=== PATIENT | female | born 1935 | race Caucasian/White ===

== ENCOUNTER 2017-01-17 15:45 | Emergency (ER) | payer OTHER ==
--- NOTE | 2017-01-17 16:54 | EDPHY ---
H & P Time Seen by Provider: 01/17/17 16:18 HPI/ROS: CHIEF COMPLAINT: Head injury HISTORY OF PRESENT ILLNESS: Patient is a 81-year-old female who presents emergency department after striking her head during the fall. The patient was on the phone. She has had a sit in a rocking chair and misjudged it. She struck her head on a file cabinet fell to the floor. She lost "teaspoons of blood." She does not think she lost consciousness but is unsure. She complains only of a mild headache. She has no neck pain. No weakness or numbness. No nausea or vomiting. She states the bleeding is now controlled. REVIEW OF SYSTEMS: My complete review of systems is negative except as mentioned in the HPI. Past Medical/Surgical History: Includes hypothyroidism, DVT, ectopic with surgery Social history: The patient is Smoking Status: Never smoked Physical Exam: Vitals noted GENERAL: Well-appearing, in no acute distress, alert. HEAD: patient has a large hematoma in the right posterior aspect of her head. Her hair is matted and clotted. This was cleaned. EYES: PERRLA, EOMI, normal to inspection. ENT: Airway intact, no dental or oral injury, no malocclusion, no hemotympanum , normal external examination. NECK: The trachea is midline. There is no crepitus. The C-spine is nontender. RESPIRATORY: Clear to auscultation bilaterally, no rales, rhonchi or wheezing. There is no crepitus or palpable rib fractures. CVS: Regular rate and rhythm, no rubs, murmurs, or gallops. ABDOMEN: Soft, nontender, nondistended, normal bowel sounds, no bruising or abrasions. Pelvis: Stable. No tenderness palpation. Hips full range of motion. BACK: Normal to inspection, no spinal tenderness, no spinal step off, no notable bruising or abrasions. SKIN: Normal color, warm, dry. No pallor or diaphoresis. EXTREMITIES: Atraumatic, neurovascularly intact distally in all extremities, pelvis is stable , hips with full range of motion, moves all extremities freely. NEURO/PSYCH: Alert and oriented x 3, GCS 15, normal mood and affect, normal motor sensory exam. Constitutional: Initial Vital Signs Temperature (C) 36.8 C 01/17/17 15:50 Heart Rate 14 L 01/17/17 15:50 Respiratory Rate 72 H 01/17/17 15:50 Blood Pressure 172/67 H 01/17/17 15:50 O2 Sat (%) 96 01/17/17 15:50 O2 Delivery Mode Room Air Allergies/Adverse Reactions: No Known Allergies Allergy (Unverified 01/17/17 15:48) Home Medications: Medication Instructions Recorded Aspirin [Aspirin 81mg] 81 mg PO DAILY 03/04/11 Levothyroxine [Levothroid] 0 mcg PO DAILY@1000 03/04/11 Medical Decision Making - Diagnostics Imaging Results: Imaging Impressions Cervical Spine CT 01/17/17 16:50 Impression: Severe multilevel degenerative change with spondylolistheses as above, with no acute posttraumatic findings. If symptoms persist and clinical suspicion warrants, consider MRI. Findings discussed with Dr. Estelle Gutierrez on January 17, [address] 01/17/17 16:50 Impression: 1. No acute intracranial findings. 2. Diffuse cerebral atrophy with periventricular and subcortical low attenuation consistent with chronic microvascular ischemic gliosis. Findings discussed with Dr. Estelle Gutierrez on January 17, 2017 at 1737 hours. Imaging: Discussed imaging studies w/ uniform designer Radiologist Procedures: Procedure: Laceration repair. Verbal consent was obtained from the patient. The 1 cm laceration on the scalp was anesthetized in the usual fashion. The wound was irrigated, draped and explored to its base with a gloved finger. There were no deep structures involved. The wound was repaired with monica. The wound repair was simple. The procedure was performed by myself. ED Course/Re-evaluation: In the emergency department I discussed possible etiologies with the patient and . I answered all her questions. Head and C-spine CT were ordered. Patient's laceration was repaired with two monica. Head CT/C-spine CT: Please refer the dictated report. No acute abnormality noted. There is degenerative changes in the C-spine. I discussed this with Dr. Monahan. I discussed the findings with the patient. I answered all her questions. She was given warnings prior to leaving. Differential Diagnosis: My differential includes but is not limited to subarachnoid hemorrhage, subdural hematoma, epidural hematoma, contusion, fracture, spinal injury Departure - Departure Disposition: Home, Routine, Self-Care Clinical Impression: Contusion of head Qualifiers: Encounter type: initial encounter Contusion of head detail: scalp Qualified Code(s): S00.03XA - Contusion of scalp, initial encounter Condition: Good Instructions: Laceration (ED), Head Injury (ED), Contusion in Adults (ED) Additional Instructions: Return with increasing pain, nausea, vomiting, weakness, numbness or any other concerns. Referrals: Kiara Khan MD [Primary Care Provider] - 2-3 days, call for appt.
[2017-01-17 17:58] VITALS: BP 155/67; PULSE 83; RESP 18; TEMP 97.9; O2SAT 93
== END 2017-01-17 17:58 | disposition home or self-care (01) ==
PROC: 0HQ0XZZ Repair Scalp Skin, External Approach (ICD-10-PCS; principal; 2017-01-17)
DX: S00.03XA Contusion of scalp, initial encounter (principal); Z79.82 Long term (current) use of aspirin; W08.XXXA Fall from other furniture, initial encounter

== ENCOUNTER → 2017-02-04 | Outpatient (CLI) | payer OTHER | LOC: BMCIMAGING 11:58 | PROVIDERS: ATTEND Family Medicine | DX: I80.8 Phlebitis and thrombophlebitis of other sites (principal) ==

== ENCOUNTER → 2017-05-06 | Outpatient (CLI) | payer OTHER ==
[~2017-05-06] MED LIST: IOPAMIDOL (ISOVUE 370) 100 ML BTL IV ONE
== END ==
LOC: FIMAGING 11:48
PROVIDERS: ATTEND Internal Medicine
DX: K86.2 Cyst of pancreas (principal)
CPT/HCPCS: 74160; Q9967

== ENCOUNTER → 2017-05-13 | Outpatient (CLI) | payer OTHER | LOC: BMCIMAGING 09:00 | PROVIDERS: ATTEND Internal Medicine | DX: Z12.31 Encounter for screening mammogram for malignant neoplasm of breast (principal); Z13.820 Encounter for screening for osteoporosis; Z78.0 Asymptomatic menopausal state | CPT/HCPCS: G0202 ==

== ENCOUNTER → 2018-05-31 | Outpatient (CLI) | payer OTHER ==
[~2018-05-31] MED LIST changes: -IOPAMIDOL (ISOVUE 370) 100 ML BTL IV ONE; +IOPAMIDOL (ISOVUE-300) 100 ML BTL ONE
== END ==
LOC: FIMAGING 10:24
PROVIDERS: ATTEND Internal Medicine
DX: R16.0 Hepatomegaly, not elsewhere classified (principal); K86.2 Cyst of pancreas
CPT/HCPCS: 74177; Q9967; 82565-PO

== ENCOUNTER 2018-06-08 08:03 | Outpatient (CLI) | payer OTHER ==
[2018-06-08] MEDS ORDERED: GLUCAGON HCL 1 MG VIAL IVP PRN (08:30)
[2018-06-08] MEDS ORDERED: HEPARIN 10,000 UNIT/10 ML MDV (1,000 UNIT/ML) IVP PRN (08:30)
[2018-06-08] MEDS ORDERED: PROTAMINE SULFATE 50 MG/5 ML VIAL IVP PRN (08:30)
[2018-06-08] MEDS ORDERED: NALOXONE HCL 0.4 MG/ML INJ IVP PRN (08:30)
[2018-06-08] MEDS ORDERED: ALTEPLASE 2 MG VIAL IVP PRN (08:30)
[2018-06-08] MEDS ORDERED: NS 1,000 ML IV SCH (08:30)
[2018-06-08] MEDS ORDERED: MEPERIDINE 25 MG/ML SYR IVP PRN (08:30)
[2018-06-08] MEDS ORDERED: fentaNYL 100 MCG/2 ML INJ IVP PRN (08:30)
[2018-06-08] MEDS ORDERED: FLUMAZENIL 0.5 MG/5 ML MDV IVP PRN (08:30)
[2018-06-08] MEDS ORDERED: MIDAZOLAM 2 MG/2 ML VIAL IVP PRN (08:30)
[2018-06-08 09:40] LABS: INR 0.91 (0.83-1.16); PROTIME(PATIENT) 12.5 SEC (12.0-15.0)
[2018-06-08] MEDS ORDERED: LIDOCAINE 1% 300 MG/30 ML SDV ONE (10:03)
[2018-06-08] MEDS ORDERED: FLUMAZENIL 0.5 MG/5 ML MDV IVP ONE (10:33)
[2018-06-08] MEDS ORDERED: MIDAZOLAM 2 MG/2 ML VIAL ONE (10:33)
[2018-06-08] MEDS ORDERED: fentaNYL 100 MCG/2 ML INJ ONE (10:33)
[2018-06-08] MEDS ORDERED: NALOXONE HCL 0.4 MG/ML INJ ONE (10:33)
--- NOTE | 2018-06-08 10:56 | PDRADPRE ---
Radiology History & Physical Indication for procedure: varicose veins, symptomatic Home medications: Aspirin [Aspirin 81mg] 81 mg PO DAILY 03/04/11 [Last Taken 06/03/18 09:00] Levothyroxine [Levothroid] 0 mcg PO DAILY@1000 03/04/11 [Last Taken 06/07/18 07: 30] Eliquis mg PO DAILY 06/02/18 [Last Taken 06/05/18 09:00] Allergies/Adverse Reactions: No Known Allergies Allergy (Unverified 01/17/17 15:48) Mental status: A&Ox3 Heart exam: regular rate and rhythm Lungs exam: clear to auscultation Mallampati Score: Class 2
--- NOTE | 2018-06-08 10:56 | PDPROPOC ---
Sedation Plan of Care Sedation Plan of Care: vital signs stable, mental status noted, patient educated of risks, benefits, alternatives, patient can tolerate sedation ASA Classification: ASA 2 Planned drugs: fentanyl, midazolam Mallampati Score: Class 2 Mallampati Reference Image: Patient passed 3-3-2 rule?: Yes
[2018-06-08] MEDS ORDERED: oxyCODONE IR 5 MG TAB PO PRN (12:31)
[2018-06-08] MEDS ORDERED: ONDANSETRON 4 MG/2 ML VIAL IVP PRN (12:31)
[2018-06-08 15:25] VITALS: BP 124/68
--- NOTE | 2018-06-08 18:21 | PDRADPN ---
Radiology Procedure Note Date of Procedure: 06/08/18 Radiologist: Fernando Hecrules Anesthesia: IV Sedation, LMA Pre-op Diagnosis: Indeterminate liver lesion Post-op Diagnosis: same Indication: Rule out tumor Procedure: U/S guided liver biopsy Finding(s): Subtle liver lesion left lobe medial segment Inf/Abcess present in the surg proc area at time of surgery?: No Depth: Organ Space (Left lobe liver medial segment) EBL: Minimal Complications: None Specimen(s): 18 ga core biopsy x 3
== END 2018-06-08 15:27 | disposition home or self-care (01) ==
LOC: FIMAGING 08:03
PROVIDERS: ATTEND Internal Medicine
PROC: 0FB03ZX Excision of Liver, Percutaneous Approach, Diagnostic (ICD-10-PCS; principal; 2018-06-08 12:25)
DX: C22.0 Liver cell carcinoma (principal); J42 Unspecified chronic bronchitis
CPT/HCPCS: 47000; 71046; 76942; 88313; 99152; 99153; J2250; J3010; J2310

== ENCOUNTER 2018-06-26 13:30 | Day surgery (SDC) | payer OTHER ==
[2018-06-26] MEDS ORDERED: LR 1,000 ML IV ONE (14:21)
[2018-06-26] MEDS ORDERED: LIDOCAINE 1% 2 ML INJ ID PRN (14:21)
--- NOTE | 2018-06-26 15:14 | PDGENHP ---
History & Physical Chief Complaint: liver cancer History of Present Illness: 83 year old female presents for abnormal imaging. Has a liver adenocarcinoma. Unkown primary?? Pertinent Past, Social, Family History: PMHx: DVT. SoHx: social alc Relevant Physical Exam: HEENT: anicteric. Cv: RRR +s1s2. Lungs: CTAB Cardiorespiratory Assessment: ASA 3
--- NOTE | 2018-06-26 15:15 | PDANEPAE ---
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 Hx of DVT's - 2 in LLE initially, then a 'cluster' in lower abdomen - Pulmonary History Hx COPD: No Hx Asthma/Reactive Airway Disease: No Hx Recent Upper Respiratory Infection: No Hx Oxygen in Use at Home: No Hx Sleep Apnea: No Sleep Apnea Screening Result - Last Documented: Negative - Neurologic History Hx Cerebrovascular Accident: No Hx Seizures: No Hx Dementia: No - Endocrine History Hx Diabetes: No Endocrine History Comment: hypothyroid - Renal History Hx Renal Disorders: No - Liver History Hx Hepatic Disorders: Yes Hepatic History Comment: Mass on liver - Neurological & Psychiatric Hx Hx Neurological and Psychiatric Disorders: No - Cancer History Hx Cancer: Yes Cancer History Comment: Saw spot on pancreas with CT in 2017 after a fall. Now seeing a mass on liver with f/u CT. States is Adenocarcinoma. - Congenital Disorder History Hx Congenital Disorders: No - GI History Hx Gastrointestinal Disorders: No - Other Health History Other Health History: bruises easily with eliquis. temporary crown, upper front. wears glasses. Arthritis in knees - Chronic Pain History Chronic Pain: Yes (back) - Surgical History Prior Surgeries: Liver Biopsy, 06/2018. Colonoscopy. Cataract surgery. Ruptured ectopic 1969 w/salpingectomy ANE Review of Systems Review of Systems: - Exercise capacity METS (RN): 3 METS ANE Patient History - Allergies Allergies/Adverse Reactions: No Known Allergies Allergy (Unverified 06/23/18 14:37) - Home Medications Home Medications: Aspirin [Aspirin 81mg] 81 mg PO DAILY 03/04/11 [Last Taken 06/21/18] Levothyroxine [Levothroid] 0 mcg PO DAILY@1000 03/04/11 [Last Taken 06/26/18] Eliquis mg PO DAILY 06/02/18 [Last Taken 06/24/18] - NPO status NPO Since - Liquids (Date): 06/26/18 NPO Since - Liquids (Time): 10:00 NPO Since - Solids (Date): 06/25/18 NPO Since - Solids (Time): 21:00 - Smoking Hx Smoking Status: Never smoked - Family Anes Hx Family Hx Anesthesia Complications: none ANE Labs/Vital Signs - Vital Signs Blood Pressure: 167/80 Heart Rate: 81 Respiratory Rate: 20 O2 Sat (%): 94 Height: 158.75 cm Weight: 65.771 kg ANE Physical Exam - Airway Neck exam: FROM Mallampati Score: Class 2 Mouth exam: normal dental/mouth exam - Pulmonary Pulmonary: no respiratory distress - Cardiovascular Cardiovascular: regular rate and rhythym - ASA Status ASA Status: III ANE Anesthesia Plan Anesthesia Plan: general endotracheal anesthesia Total IV Anesthesia: Yes
[2018-06-26] MEDS ORDERED: PROPOFOL/EMULSION 500 MG/50 ML BOTTLE IV ONE (15:21)
[2018-06-26] MEDS ORDERED: fentaNYL 100 MCG/2 ML INJ ONE (15:22)
[2018-06-26] MEDS ORDERED: NS 500 ML IV SCH (15:30)
[2018-06-26] MEDS ORDERED: levOFLOXACIN 500 MG/DEXTROSE 100 ML IV ONE (15:55)
[2018-06-26] MEDS ORDERED: levOFLOXACIN 500 MG/DEXTROSE/100 ML BAG IV ONE (16:00)
[2018-06-26] MEDS ORDERED: NALOXONE HCL 0.4 MG/ML INJ IVP PRN (16:27)
--- NOTE | 2018-06-26 16:41 | POSTANESTH ---
Post Anesthetic Evaluation Cardiovascular Status: Normal, Stable Respiratory Status: Normal, Stable Level of Consciousness/Mental Status: Can Participate in Eval Pain Control: Adequate, Prn Tx Ordered Nausea/Vomiting Control: Adequate, Prn Tx Ordered Complications Possibly Related to Anesthesia: None Noted
[2018-06-26 19:46] VITALS: BP 155/74
--- NOTE | 2018-06-29 11:09 | GIREPORT ---
[facility] - Endoscopy Department Patient Name: Abimbola Carpenter Procedure Date: 06/26/2018 3:14 PM Patient Type: Outpatient Attending MD/ ER Physician: Marcial Pal MD Procedure: Upper EUS Indications: Pancreatic cyst on CT scan Patient Profile: 83 year old female with a liver mass presents for evaluation of abnorma l imaging. She had a biopsy of the liver lesions with pathology consisten t with adenocarcinoma. Providers: Marcial Pal MD Medicines: Monitored Anesthesia Care Complications: No immediate complications. Estimated blood loss: Minimal. Description of Procedure: After obtaining informed consent, the endoscope was passed under direct vision. Throughout the procedure, the patient's blood pressure, pulse, and oxygen saturations were monitored continuously. The Endosonoscope was introduced through the mouth, and advanced to the second part of duoden um. The Endoscope was introduced through the mouth, and advanced to the sec ond part of duodenum. The upper EUS was accomplished without difficulty. Th e esophagus, stomach, and duodenum were visualized endosonographically. T he patient tolerated the procedure well. Findings: Endoscopic Finding : The examined esophagus was normal. No mass lesion wa sseen. A medium-sized hiatal hernia was present. Multiple small sessile polyps were found in the cardia and in the gastr ic fundus. Biopsies were taken with a cold forceps for histology. Patchy mildly erythematous mucosa was found in the gastric body and in the gastric antrum. Biopsies were taken with a cold forceps for histology. A single small sessile polyp was found in the duodenal bulb. Biopsies w ere taken with a cold forceps for histology. The second portion of the duod enum was normal in appearance. Endosonographic Finding : An irregular mass was identified endosonographically in the right lobe of the liver. The mass was hypoechoic. No other liver lesions were noted. One stone was visualized endosonographically in the gallbladder. The st one measured 10 mm in greatest dimension. The stone was round. It was characterized by shadowing. There was no sign of significant endosonographic abnormality in the com mon bile duct. The maximum diameter of the duct was 6 mm. No lymphadenopathy seen. An anechoic lesion suggestive of a cyst was identified in the uncinate process of the pancreas. It communicates with the pancreatic duct. The lesion measured 14 mm in maximal cross-sectional diameter. There was a single compartment without septae. The outer wall of the lesion was thi n. There was no associated mass. There was no internal debris within the fluid-filled cavity. Fine needle aspiration for cytology was performed. Color Doppler imaging was utilized prior to needle puncture to confirm a lack of significant vascular structures within the needle path. Two pas ses were made with the 25 gauge needle using a transduodenal approach. Some passes were made with a stylet. A water resource engineering specialist was present and performed a preliminary cytologic examination. The first pass was made around the a letty of the cyst but no obvious mass lesion was seen. The second pass was ma de directly into the cyst 6cc of fluid was aspirated and will be sent for CEA. No obvious malignancy see. An anechoic lesion suggestive of a cyst was identified in the pancreati c body. It is not in obvious communication with the pancreatic duct. The lesion measured 5 mm in maximal cross-sectional diameter. There was a s wilma compartment without septae. The outer wall of the lesion was not seen. There was no associated mass. There was no internal debris within the fluid-f illed cavity. Pancreatic parenchymal abnormalities were noted in the entire pancreas. These consisted of atrophy and hyperechoic foci. The pancreatic duct had a prominently branched endosonographic appearan ce in the entire pancreas. Estimated Blood Loss: Estimated blood loss was minimal. Post Op Diagnosis: - Normal esophagus. - Medium-sized hiatal hernia. - Multiple gastric polyps. Biopsied. - Erythematous mucosa in the gastric body and antrum. Biopsied. - A single duodenal polyp. Biopsied. - A mass was found in the right lobe of the liver consistent with known malignancy. - One stone was visualized endosonographically in the gallbladder. - There was no sign of significant pathology in the common bile duct. - A cystic lesion was seen in the uncinate process of the pancreas. Fin e needle aspiration performed. - A cystic lesion was seen in the pancreatic body. It was a simple cyst . - Pancreatic parenchymal abnormalities consisting of atrophy and hypere choic foci were noted in the entire pancreas. - The pancreatic duct had a prominently branched endosonographic appear ance in the entire pancreas. - Etiology? No pancreatic, esophageal, or gallbaldder malignancy seen. Recommendation: - Discharge patient to home (with escort). - Clear liquid diet. - Continue present medications. - Follow up with oncology. - Thank you for allowing me to participate in the care of your patient. Attending Participation: I personally performed the entire procedure. Marcial Pal MD Marcial Pal MD 06/26/2018 8:47:23 PM This report has been signed electronicallyMarcial Pal MD Number of Addenda: 0 Note Initiated On: 06/26/2018 3:14 PM [email or web address]
== END 2018-06-26 18:35 | disposition home or self-care (01) ==
LOC: FSGY 13:30
PROVIDERS: ATTEND Internal Medicine Gastroenterology
PROC: 0DB68ZX Excision of Stomach, Via Natural or Artificial Opening Endoscopic, Diagnostic (ICD-10-PCS; principal; 2018-06-26 15:00)
PROC: 0DB98ZX Excision of Duodenum, Via Natural or Artificial Opening Endoscopic, Diagnostic (ICD-10-PCS; principal; 2018-06-26 15:00)
PROC: 0FBG8ZX Excision of Pancreas, Via Natural or Artificial Opening Endoscopic, Diagnostic (ICD-10-PCS; principal; 2018-06-26 15:00)
DX: K86.2 Cyst of pancreas (principal); C22.8 Malignant neoplasm of liver, primary, unspecified as to type; K44.9 Diaphragmatic hernia without obstruction or gangrene; K31.7 Polyp of stomach and duodenum; K29.80 Duodenitis without bleeding; K29.50 Unspecified chronic gastritis without bleeding; E03.9 Hypothyroidism, unspecified
CPT/HCPCS: J1956; J2704; J3010

== ENCOUNTER → 2018-09-14 | Day surgery (SDC) | payer OTHER ==
[~2018-09-14] MED LIST changes: +ALTEPLASE 2 MG VIAL IVP PRN; +FLUMAZENIL 0.5 MG/5 ML MDV IVP PRN; +GLUCAGON HCL 1 MG VIAL IVP PRN; +HEPARIN 10,000 UNIT/10 ML MDV (1,000 UNIT/ML) IVP PRN; +LIDOCAINE 1% 300 MG/30 ML SDV ONE; +MEPERIDINE 25 MG/ML SYR IVP PRN; +MIDAZOLAM 2 MG/2 ML VIAL IVP PRN; +NALOXONE HCL 0.4 MG/ML INJ IVP PRN; +NS 1,000 ML IV ONE; +ONDANSETRON 4 MG/2 ML VIAL IVP PRN; +OXYCODONE/APAP 5/325 TAB PO PRN; +PANTOPRAZOLE SODIUM 40 MG VIAL IVP ONE; +PROTAMINE SULFATE 50 MG/5 ML VIAL IVP PRN; +fentaNYL 100 MCG/2 ML INJ IVP PRN; +methylPREDNISolone SOD SUCC 125 MG/2 ML VIAL IVP ONE
[2018-09-14 09:03] LABS: INR 0.95 (0.83-1.16); PROTIME(PATIENT) 12.9 SEC (12.0-15.0)
[2018-09-14 10:59] VITALS: BP 134/60
--- NOTE | 2018-09-14 11:16 | PDRADPRE ---
Radiology History & Physical Indication for procedure: cancer Home medications: Aspirin [Aspirin 81mg (*)] 81 mg PO DAILY 03/04/11 [Last Taken 09/10/18] Levothyroxine [Synthroid 200 mcg (*)] 100 mcg PO DAILY@1000 03/04/11 [Last Taken 09/13/18] Eliquis 5 mg PO BID 06/02/18 [Last Taken 09/12/18] Mvi with Vit K 1 tab PO DAILY 09/06/18 [Last Taken 09/13/18] Allergies/Adverse Reactions: No Known Allergies Allergy (Verified 09/06/18 11:44) Mental status: A&Ox3 Heart exam: regular rate and rhythm Lungs exam: clear to auscultation Mallampati Score: Class 2
--- NOTE | 2018-09-14 11:23 | PDRADPN ---
Radiology Procedure Note Date of Procedure: 09/14/18 Radiologist: Onur Bajwa Anesthesia: IV Sedation Pre-op Diagnosis: CholangioCA Post-op Diagnosis: CholangioCA Indication: Liver directed therapy Procedure: Y90 mapping Finding(s): Coil embolization GDA. LHA injected with MAA. Please see separately dictated radiology report for further details. Inf/Abcess present in the surg proc area at time of surgery?: No
== END | disposition home or self-care (01) ==
LOC: FIMAGING 07:19
PROVIDERS: ATTEND Radiology Vascular & Interventional Radiology
DX: C22.1 Intrahepatic bile duct carcinoma (principal)
CPT/HCPCS: 36247; 37243; 75726; 78201; 99152; 99153; C1769; C1894; J1200; J1644; J2250; J2310; J2930; J3010; Q9967

== ENCOUNTER 2018-10-04 06:05 | Day surgery (SDC) | payer OTHER ==
[2018-10-04] MEDS ORDERED: NS 1,000 ML IV ONE (06:20)
[2018-10-04] MEDS ORDERED: PANTOPRAZOLE SODIUM 40 MG VIAL IVP ONE (06:20)
[2018-10-04] MEDS ORDERED: fentaNYL 100 MCG/2 ML INJ IVP PRN (06:20)
[2018-10-04] MEDS ORDERED: NALOXONE HCL 0.4 MG/ML INJ IVP PRN (06:20)
[2018-10-04] MEDS ORDERED: PROTAMINE SULFATE 50 MG/5 ML VIAL IVP PRN (06:20)
[2018-10-04] MEDS ORDERED: methylPREDNISolone SOD SUCC 125 MG/2 ML VIAL IVP ONE (06:20)
[2018-10-04] MEDS ORDERED: MIDAZOLAM 2 MG/2 ML VIAL IVP PRN (06:20)
[2018-10-04] MEDS ORDERED: GLUCAGON HCL 1 MG VIAL IVP PRN (06:20)
[2018-10-04] MEDS ORDERED: HEPARIN 10,000 UNIT/10 ML MDV (1,000 UNIT/ML) IVP PRN (06:20)
[2018-10-04] MEDS ORDERED: ALTEPLASE 2 MG VIAL IVP PRN (06:20)
[2018-10-04] MEDS ORDERED: MEPERIDINE 25 MG/ML SYR IVP PRN (06:20)
[2018-10-04] MEDS ORDERED: FLUMAZENIL 0.5 MG/5 ML MDV IVP PRN (06:20)
[2018-10-04 07:30] LABS: INR 0.92 (0.83-1.16); PROTIME(PATIENT) 12.6 SEC (12.0-15.0)
--- NOTE | 2018-10-04 08:04 | PDRADPRE ---
Radiology History & Physical Indication for procedure: cancer (Left hepatic lobe primary hepatic malignancy - Y90 left hepatic artery) Home medications: Aspirin [Aspirin 81mg (*)] 81 mg PO DAILY 03/04/11 [Last Taken 09/27/18] Levothyroxine [Synthroid 200 mcg (*)] 100 mcg PO DAILY@1000 03/04/11 [Last Taken 10/03/18] Eliquis 5 mg PO BID 06/02/18 [Last Taken 10/02/18 07:30] Mvi with Vit K 1 tab PO DAILY 09/06/18 [Last Taken 10/03/18] Allergies/Adverse Reactions: No Known Allergies Allergy (Verified 10/04/18 06:49) Mental status: A&Ox3 Heart exam: regular rate and rhythm Lungs exam: clear to auscultation Mallampati Score: Class 2
[2018-10-04 09:10] VITALS: BP 137/67
[2018-10-04] MEDS ORDERED: LIDOCAINE 1% 300 MG/30 ML SDV ONE (09:20)
[2018-10-04] MEDS ORDERED: IOPAMIDOL (ISOVUE-300) 100 ML BTL ONE ×2 (09:20→09:40)
--- NOTE | 2018-10-04 12:14 | PDRADPN ---
Radiology Procedure Note Date of Procedure: 10/04/18 Radiologist: Onur Bajwa Anesthesia: IV Sedation Pre-op Diagnosis: CholangioCA Post-op Diagnosis: CholangioCA Indication: CholangioCA Procedure: Left lobe Y90 Finding(s): Successful treatment of left hepatic artery Inf/Abcess present in the surg proc area at time of surgery?: No
== END 2018-10-04 12:30 | disposition home or self-care (01) ==
LOC: FIMAGING 06:05
PROVIDERS: ATTEND Radiology Vascular & Interventional Radiology
PROC: 04L33DZ Occlusion of Hepatic Artery with Intraluminal Device, Percutaneous Approach (ICD-10-PCS; principal; 2018-10-04)
PROC: B44LZZZ Ultrasonography of Femoral Artery (ICD-10-PCS; principal; 2018-10-04)
PROC: B4121ZZ Fluoroscopy of Hepatic Artery using Low Osmolar Contrast (ICD-10-PCS; principal; 2018-10-04)
DX: C22.8 Malignant neoplasm of liver, primary, unspecified as to type (principal)
CPT/HCPCS: 36246; 37243; 75726; 76937; 77790; 78205; 79445; 99152; C1769; C1894; C2616; J1200; J1644; J2250; J2310; J2930; J3010; Q9967